=== PATIENT | male | born 1950 | race Caucasian/White ===

== ENCOUNTER → 2020-12-06 | Outpatient (CLI) | payer MEDICARE, OTHER ==
[~2020-12-06] MED LIST: ANTIVERT 12.512.5 MG PO; VIBRAMYCIN100 MG PO
== END ==
LOC: EXRD 07:40
DX: R94.5 Abnormal results of liver function studies (principal)
CPT/HCPCS: 76700

== ENCOUNTER → 2021-01-18 | Outpatient (CLI) | payer MEDICARE, OTHER | LOC: RAD 14:56 | DX: R06.09 Other forms of dyspnea (principal) | CPT/HCPCS: 71046 ==

== ENCOUNTER → 2021-02-02 | Outpatient (CLI) | payer MEDICARE, OTHER | LOC: HEART 5 10:54 | DX: R06.09 Other forms of dyspnea (principal) | CPT/HCPCS: 94010 ==

== ENCOUNTER → 2022-03-22 | Outpatient (CLI) | payer MEDICARE, OTHER | LOC: EXRD 03-15 10:30 | DX: R00.2 Palpitations (principal); K74.60 Unspecified cirrhosis of liver; R09.89 Other specified symptoms and signs involving the circulatory and respiratory systems; K76.0 Fatty (change of) liver, not elsewhere classified | CPT/HCPCS: 76700; 93880 ==